=== PATIENT | female | born 1955 | race Caucasian/White ===

== ENCOUNTER 2016-07-16 16:22 | Outpatient (CLI) | payer MEDICAID | END 2016-07-16 16:23 | disposition home or self-care (01) | DX: R05 Cough (principal) ==

== ENCOUNTER 2016-12-18 15:00 | Outpatient (CLI) | payer MEDICAID ==
[2016-12-18 17:44] LABS: BASOPHILS % (AUTO) 0.5 %; EOSINOPHILS # (AUTO) 0.3 10^3/uL (0.0-0.7); EOSINOPHILS % (AUTO) 4.3 %; HCT - HEMATOCRIT 44.7 % (37.0-47.0); HGB - HEMOGLOBIN 14.8 g/dL (12.0-16.0); LYMPHOCYTES # (AUTO) 1.7 10^3/uL (1.5-3.5); LYMPHOCYTES % (AUTO) 25.2 %; MEAN CORPUSCULAR HEMOGLOBIN 30.3 pg (27.0-31.0); MEAN CORPUSCULAR HGB CONC 33.1 g/dL (32.0-36.0); MEAN CORPUSCULAR VOLUME 91.5 fL (81.0-99.0); MEAN PLATELET VOLUME 9.6 fL (7.9-10.8); MONOCYTES # (AUTO) 0.5 10^3/uL (0.0-1.0); MONOCYTES % (AUTO) 7.7 %; NEUTROPHILS # (AUTO) 4.2 10^3/uL (1.5-6.6); NEUTROPHILS % (AUTO) 62.3 %; NUCLEATED RED BLOOD CELLS AUTO 0.1 /100WBC; RED BLOOD COUNT 4.88 10^6/uL (4.20-5.40); RED CELL DISTRIBUTION WIDTH 13.8 % (12.0-15.0); UNCORRECTED WHITE BLOOD COUNT 6.7 x10^3/uL; WHITE BLOOD COUNT 6.7 x10^3/uL (4.8-10.8)
[2016-12-18 17:46] LABS: ALBUMIN/GLOBULIN RATIO 1.5 (1.0-2.2); CALCIUM 9.7 mg/dL (8.5-10.3); CREATININE 0.7 mg/dL (0.4-1.0); POTASSIUM 3.9 mmol/L (3.5-5.0); TOTAL PROTEIN 7.8 g/dL (6.7-8.2)
== END 2016-12-18 15:01 | disposition home or self-care (01) ==
LOC: LAB.F 15:00
PROVIDERS: ATTEND Nurse Practitioner Family
DX: R53.83 Other fatigue (principal)
CPT/HCPCS: 36415; 80053; 84443; 85025

== ENCOUNTER 2017-09-28 08:00 | Outpatient (CLI) | payer MEDICAID ==
[2017-09-28 18:51] LABS: HGB - HEMOGLOBIN 15.1 g/dL (12.0-16.0); MEAN CORPUSCULAR HEMOGLOBIN 30.6 pg (27.0-31.0); MEAN CORPUSCULAR HGB CONC 33.9 g/dL (32.0-36.0); MEAN CORPUSCULAR VOLUME 90.5 fL (81.0-99.0); MEAN PLATELET VOLUME 9.7 fL (7.9-10.8); RED BLOOD COUNT 4.91 10^6/uL (4.20-5.40); RED CELL DISTRIBUTION WIDTH 14.1 % (12.0-15.0); WHITE BLOOD COUNT 5.1 x10^3/uL (4.8-10.8)
[2017-09-28 19:10] LABS: CRP - C-REACTIVE PROTEIN < 1.0 mg/dL (0-1.0)
[2017-09-28 19:11] LABS: URIC ACID 7.1 mg/dL (2.6-7.2)
[2017-09-28 20:32] LABS: RHEUMATOID FACTOR NEGATIVE (Negative)
[2017-09-30 13:42] LABS: ANA SCREEN NEGATIVE (NEGATIVE)
== END 2017-09-28 08:01 | disposition home or self-care (01) ==
LOC: LAB.S 08:00
PROVIDERS: ATTEND Nurse Practitioner Family
DX: M19.90 Unspecified osteoarthritis, unspecified site (principal); M79.643 Pain in unspecified hand
CPT/HCPCS: 36415; 84550; 85651; 86038; 86140; 86200; 86430

== ENCOUNTER 2017-09-28 12:12 | Outpatient (CLI) | payer MEDICAID ==
--- NOTE | 2017-09-28 13:16 | XRAY Report ---
THREE VIEW BILATERAL HANDS: 09/28/2017 CLINICAL INDICATION: Pain. FINDINGS: AP, lateral, oblique views of the bilateral hands demonstrate osteoarthritis, worst in the left first carpometacarpal joint and right distal fifth interphalangeal joint. There is no evidence of acute fracture or dislocation. No radiopaque foreign body is seen in the soft tissues. IMPRESSION: BILATERAL OSTEOARTHRITIS. TD: 09/28/2017 13:15
== END 2017-09-28 12:13 | disposition home or self-care (01) ==
LOC: DI.S 12:12
PROVIDERS: ATTEND Nurse Practitioner Family
DX: M19.042 Primary osteoarthritis, left hand (principal); M19.041 Primary osteoarthritis, right hand
CPT/HCPCS: 36415; 84550; 85651; 86038; 86140; 86200; 86430

== ENCOUNTER 2017-10-19 08:00 | Outpatient (CLI) | payer MEDICAID ==
[2017-10-19 18:40] LABS: CALCIUM 9.9 mg/dL (8.5-10.3); URIC ACID 6.7 mg/dL (2.6-7.2)
== END 2017-10-19 08:01 | disposition home or self-care (01) ==
LOC: LAB.S 08:00
PROVIDERS: ATTEND Nurse Practitioner Family
DX: M79.675 Pain in left toe(s) (principal)
CPT/HCPCS: 36415; 82310; 84550

== ENCOUNTER 2017-10-19 09:33 | Outpatient (CLI) | payer MEDICAID ==
--- NOTE | 2017-10-19 10:47 | XRAY Report ---
THREE VIEW LEFT GREAT TOE: 10/19/2017 CLINICAL INDICATION: Pain. FINDINGS: AP, lateral, oblique views of the left great toe demonstrate mild osteoarthritis of the first metatarsophalangeal joint. There is no evidence of acute fracture or dislocation. No foreign body is seen in the soft tissues. IMPRESSION: MILD OSTEOARTHRITIS OF THE FIRST METATARSOPHALANGEAL JOINT. TD: 10/19/2017 10:46
== END 2017-10-19 09:34 | disposition home or self-care (01) ==
LOC: DI.S 09:33
PROVIDERS: ATTEND Nurse Practitioner Family
DX: M79.675 Pain in left toe(s) (principal); M19.072 Primary osteoarthritis, left ankle and foot
CPT/HCPCS: 36415; 73660; 82310; 84550

== ENCOUNTER 2018-05-10 10:48 | Outpatient (CLI) | payer MEDICAID ==
[2018-05-10 14:03] LABS: MUDS CUTOFF CONCENTRATIONS CUTOFF CONC BELOW:
[2018-05-10 18:23] LABS: AMPHETAMINE SCREEN,URINE POSITIVE (NEGATIVE); BENZODIAZEPINES SCREEN, URINE NEGATIVE (NEGATIVE); COCAINE SCREEN URINE NEGATIVE (NEGATIVE); METHADONE SCREEN, URINE NEGATIVE (NEGATIVE); METHAMPHETAMINES SCREEN, URINE NEGATIVE (NEGATIVE); OPIATE SCREEN, URINE NEGATIVE (NEGATIVE); OXYCODONE SCREEN, URINE NEGATIVE (NEGATIVE); PROPOXYPHENE SCREEN, URINE NEGATIVE (NEGATIVE); TRICYCLIC ANTIDEPRESSANT,URINE NEGATIVE (NEGATIVE)
== END 2018-05-10 23:59 | disposition home or self-care (01) ==
LOC: LAB.R 10:48
PROVIDERS: ATTEND Nurse Practitioner Family
DX: F90.0 Attention-deficit hyperactivity disorder, predominantly inattentive type (principal)
CPT/HCPCS: 80306

== ENCOUNTER 2018-11-03 08:00 | Outpatient (CLI) | payer MEDICAID ==
[2018-11-03 17:46] LABS: MUDS CUTOFF CONCENTRATIONS CUTOFF CONC BELOW:
[2018-11-03 18:03] LABS: AMPHETAMINE SCREEN,URINE POSITIVE (NEGATIVE); BENZODIAZEPINES SCREEN, URINE NEGATIVE (NEGATIVE); COCAINE SCREEN URINE NEGATIVE (NEGATIVE); METHADONE SCREEN, URINE NEGATIVE (NEGATIVE); METHAMPHETAMINES SCREEN, URINE NEGATIVE (NEGATIVE); OPIATE SCREEN, URINE NEGATIVE (NEGATIVE); OXYCODONE SCREEN, URINE NEGATIVE (NEGATIVE); PROPOXYPHENE SCREEN, URINE NEGATIVE (NEGATIVE); TRICYCLIC ANTIDEPRESSANT,URINE NEGATIVE (NEGATIVE)
== END 2018-11-03 23:59 | disposition home or self-care (01) ==
LOC: LAB.R 08:00
PROVIDERS: ATTEND Nurse Practitioner Family
DX: F90.9 Attention-deficit hyperactivity disorder, unspecified type (principal)
CPT/HCPCS: 80306

== ENCOUNTER 2019-07-23 10:28 | Outpatient (CLI) | payer MEDICAID ==
--- NOTE | 2019-07-23 13:20 | XRAY Report ---
Reason: Right 4th toe pain Procedure Date: 07/23/2019 Accession Number: [id number] / [id number] Procedure: XR - Toe(s) RT CPT Code: Final Report FULL RESULT: EXAM: RIGHT TOE RADIOGRAPHY EXAM DATE: 07/23/2019 10:45 AM. CLINICAL HISTORY: Right 4th toe pain. COMPARISON: None. TECHNIQUE: 3 views. FINDINGS: Bones: Normal. No fracture or bone lesion. Joints: Normal. No subluxations. Soft Tissues: Normal. No soft tissue swelling. IMPRESSION: Normal toe radiography. RADIA
== END 2019-07-23 10:29 | disposition home or self-care (01) ==
LOC: DI 10:28
PROVIDERS: ATTEND Physician Assistant Medical
DX: M25.571 Pain in right ankle and joints of right foot (principal)
CPT/HCPCS: 73660

== ENCOUNTER 2020-11-01 08:00 | Outpatient (CLI) | payer MEDICAID ==
[2020-11-01 14:33] LABS: HCT - HEMATOCRIT 48.6 % (37.0-47.0); HGB - HEMOGLOBIN 15.9 g/dL (12.0-16.0); MEAN CORPUSCULAR HEMOGLOBIN 30.5 pg (27.0-31.0); MEAN CORPUSCULAR HGB CONC 32.7 g/dL (32.0-36.0); MEAN CORPUSCULAR VOLUME 93.3 fL (81.0-99.0); MEAN PLATELET VOLUME 11.3 fL (7.9-10.8); RED BLOOD COUNT 5.21 10^6/uL (4.20-5.40); RED CELL DISTRIBUTION WIDTH 13.6 % (12.0-15.0); WHITE BLOOD COUNT 6.7 x10^3/uL (4.8-10.8)
[2020-11-01 15:59] LABS: THYROID STIMULATING HORMONE 2.17 uIU/mL (0.34-5.60)
[2020-11-01 16:16] LABS: RHEUMATOID FACTOR NEGATIVE (Negative)
[2020-11-05 09:12] LABS: ANA SCREEN NEGATIVE (NEGATIVE)
== END 2020-11-01 08:01 | disposition home or self-care (01) ==
LOC: LAB.S 08:00
PROVIDERS: ATTEND Physician Assistant Medical
DX: H20.9 Unspecified iridocyclitis (principal); M19.90 Unspecified osteoarthritis, unspecified site; R30.0 Dysuria; R31.9 Hematuria, unspecified; R53.83 Other fatigue; R53.81 Other malaise
CPT/HCPCS: 36415; 84443; 85027; 85651; 86038; 86140; 86200; 86430; 87086

== ENCOUNTER 2020-11-01 11:12 | Outpatient (CLI) | payer MEDICAID ==
--- NOTE | 2020-11-01 11:37 | XRAY Report ---
PROCEDURE: Chest 3 View X-Ray INDICATIONS: FATIGUE AND MALAISE, COUGH, BILATERAL IRITIS TECHNIQUE: 2 view(s) of the chest. COMPARISON: Chest x-ray 2 views, 07/16/2016. FINDINGS: Surgical changes and devices: None. Lungs and pleura: No pleural effusions or pneumothorax. Lungs are clear. Mediastinum: Mediastinal contours are normal. Heart size is normal. Bones and chest wall: No suspicious bony abnormalities. Soft tissues appear unremarkable. IMPRESSION: No acute cardiopulmonary disease. Reviewed by: Litzy Reich MD on 11/01/2020 11:36 AM PDT Approved by: Litzy Reich MD on 11/01/2020 11:36 AM PDT Station ID: [id number]
== END 2020-11-01 23:59 | disposition home or self-care (01) ==
LOC: DI.S 11:12
PROVIDERS: ATTEND Physician Assistant Medical
DX: R53.83 Other fatigue (principal); R05 Cough; H20.9 Unspecified iridocyclitis; M19.90 Unspecified osteoarthritis, unspecified site; R30.0 Dysuria; R31.9 Hematuria, unspecified; R53.81 Other malaise
CPT/HCPCS: 36415; 84443; 85027; 85651; 86038; 86140; 86200; 86430; 87086

== ENCOUNTER 2021-05-03 08:00 | Outpatient (CLI) | payer MEDICAID ==
--- NOTE | 2021-05-03 09:59 | XRAY Report ---
PROCEDURE: Ribs w/PA Chest LT INDICATIONS: CONTUSION OF LEFT FRONT WALL OF THORAX TECHNIQUE: 4 views of the right ribs were acquired, along with a single view chest. COMPARISON: Chest xray 11/01/20 FINDINGS: Surgical changes and devices: None. Bones and chest wall: No fractures or dislocations. No suspicious bony lesions. Overlying soft tis sues appear unremarkable. Lungs and pleura: No pleural effusions or pneumothorax. Lungs appear clear. Mediastinum: Mediastinal contours appear normal. Heart size is normal. IMPRESSION: No visualized acute fracture or dislocation. However, occult injury cannot be excluded. Recommend loli rt interval imaging follow-up in 7-10 days as clinically indicated for additional evaluation. Reviewed by: Sada Lorenzo MD on 05/03/2021 9:58 AM [facility] Approved by: Sada Lorenzo MD on 05/03/2021 9:58 AM [facility] Station ID: [id number]
== END 2021-05-03 23:59 | disposition home or self-care (01) ==
LOC: DI.S 08:00
PROVIDERS: ATTEND Physician Assistant Medical
DX: S20.212A Contusion of left front wall of thorax, initial encounter (principal)

== ENCOUNTER 2021-05-03 08:00 | Outpatient (CLI) | payer MEDICAID ==
--- NOTE | 2021-05-03 10:45 | XRAY Report ---
PROCEDURE: Lumbar Spine 2 View INDICATIONS: LOW BACK PAIN TECHNIQUE: 3 views of the lumbar spine were acquired. COMPARISON: None. FINDINGS: Bones: 5 [id number]-[id number] vertebrae are present. There is normal bony alignment. Decreased disc heig ht, degenerative endplate changes and bilateral facet arthrosis throughout lumbar spine is seen more prominent at L4-5 and L5-S1 levels. No vertebral body compression fractures. No suspicious bony lesi ons. Soft tissues: Overlying bowel gas pattern is normal. No suspicious soft tissue calcifications. IMPRESSION: No lumbar spine compression fracture or spondylolisthesis. Degenerative disc disease thr oughout lumbar spine more prominent in lower lumbar spine as above. Reviewed by: Levar Flores MD on 05/03/2021 10:44 AM PST Approved by: Levar Flores MD on 05/03/2021 10:44 AM PST Station ID: [id number]
== END 2021-05-03 23:59 | disposition home or self-care (01) ==
LOC: DI.S 08:00
PROVIDERS: ATTEND Registered Nurse
DX: M51.16 Intervertebral disc disorders with radiculopathy, lumbar region (principal); M47.26 Other spondylosis with radiculopathy, lumbar region; S20.212A Contusion of left front wall of thorax, initial encounter

== ENCOUNTER 2022-02-21 08:00 | Outpatient (CLI) | payer MEDICARE, MEDICAID ==
--- NOTE | 2022-02-21 15:55 | XRAY Report ---
PROCEDURE: Knee 4 View LT INDICATIONS: LEFT KNEE EFFUSION TECHNIQUE: 4 views of the left knee(s) were acquired. COMPARISON: None. FINDINGS: Bones: No fractures or dislocations. No suspicious bony lesions. There is moderate medial as well as patellofemoral compartment narrowing. Minimal posterior osteophytes are present. No erosions. Soft tissues: Minimal joint effusion. No suspicious soft tissue calcifications. IMPRESSION: Arthritic changes within the medial patellofemoral compartments. Reviewed by: Sada Lorenzo MD on 02/21/2022 3:54 PM PDT Approved by: Sada Lorenzo MD on 02/21/2022 3:54 PM PDT Station ID: [id number]
== END 2022-02-21 08:01 | disposition home or self-care (01) ==
LOC: DI.S 08:00
PROVIDERS: ATTEND Physician Assistant
DX: M25.462 Effusion, left knee (principal); M17.12 Unilateral primary osteoarthritis, left knee

== ENCOUNTER 2023-09-09 10:20 | Outpatient (CLI) | payer MEDICAID, MEDICARE ==
--- NOTE | 2023-09-09 11:28 | XRAY Report ---
PROCEDURE: Chest 2V INDICATIONS: ACUTE COUGH TECHNIQUE: 2 views of the chest were acquired. COMPARISON: Chest x-ray 05/03/2021 FINDINGS: Surgical changes and devices: None. Lungs and pleura: No pleural effusions or pneumothorax. Lungs are clear. Mediastinum: Mediastinal contours appear normal. Heart size is mildly prominent. Bones and chest wall: No suspicious bony lesions. Overlying soft tissues appear unremarkable. IMPRESSION: No acute cardiopulmonary process. Reviewed by: Sada Lorenzo MD on 09/09/2023 11:27 AM PDT Approved by: Sada Lorenzo MD on 09/09/2023 11:27 AM PDT Station ID: [id number]
[2023-09-09 14:41] LABS: BASOPHILS % (AUTO) 0.6 %; EOSINOPHILS # (AUTO) 0.1 10^3/uL (0.0-0.7); EOSINOPHILS % (AUTO) 1.9 %; HCT - HEMATOCRIT 50.1 % (37.0-47.0); HGB - HEMOGLOBIN 15.9 g/dL (12.0-16.0); LYMPHOCYTES # (AUTO) 1.7 10^3/uL (1.5-3.5); LYMPHOCYTES % (AUTO) 24.2 %; MEAN CORPUSCULAR HGB CONC 31.7 g/dL (32.0-36.0); MEAN CORPUSCULAR VOLUME 94.5 fL (81.0-99.0); MEAN PLATELET VOLUME 10.8 fL (7.9-10.8); MONOCYTES # (AUTO) 0.7 10^3/uL (0.0-1.0); MONOCYTES % (AUTO) 9.7 %; NEUTROPHILS # (AUTO) 4.5 10^3/uL (1.5-6.6); NEUTROPHILS % (AUTO) 63.2 %; PLT - PLATELET COUNT 260 10^3/uL (130-450); RED CELL DISTRIBUTION WIDTH 13.7 % (12.0-15.0); WHITE BLOOD COUNT 7.2 x10^3/uL (4.8-10.8)
[2023-09-09 15:11] LABS: THYROID STIMULATING HORMONE 3.05 uIU/mL (0.34-5.60)
[2023-09-09 15:12] LABS: ALBUMIN 4.5 g/dL (3.2-5.5); ALBUMIN/GLOBULIN RATIO 1.5 (1.0-2.2); BILIRUBIN,TOTAL 1.2 mg/dL (0.2-1.0); CALCIUM 10.3 mg/dL (8.5-10.3); CREATININE 0.8 mg/dL (0.6-1.3); POTASSIUM 4.2 mmol/L (3.5-4.5); TOTAL PROTEIN 7.6 g/dL (6.4-8.9)
[2023-09-09 20:58] LABS: ESTIMATED AVERAGE GLUCOSE 131 mg/dL (70-100); HEMOGLOBIN A1c% 6.2 % (4.27-6.07)
== END 2023-09-09 10:21 | disposition home or self-care (01) ==
LOC: DI.S 10:20
PROVIDERS: ATTEND Registered Nurse
DX: R05.1 Acute cough (principal); G47.19 Other hypersomnia; G47.9 Sleep disorder, unspecified; R61 Generalized hyperhidrosis; R63.5 Abnormal weight gain; R03.0 Elevated blood-pressure reading, without diagnosis of hypertension; R73.9 Hyperglycemia, unspecified
CPT/HCPCS: 36415; 80053; 81599; 83036; 84443; 85025

== ENCOUNTER 2024-01-13 10:33 | Outpatient (CLI) | payer MEDICARE ==
--- NOTE | 2024-01-13 11:35 | Sleep Patient Instructions ---
Sleep Center Visit Summary - Patient Visit Information Reason for Visit: Initial consult for evaluation of sleep disordered breathing and other sleep issues. - Patient Instructions Instructions Attached: Sleep Study, Sleep Study Home Monitor Additional Instructions: You will be completing a sleep study, either an in-lab polysomnography (PSG) or home sleep study (HST). You will follow-up in the sleep care office after the sleep study is completed to hear the results and talk about therapy, if needed. You will be called by our office staff to schedule this appointment, but you may contact us with any questions. - Clinic Information Contact: [facility] [address] [place] [id number] [email or web address] T: [phone]
--- NOTE | 2024-01-13 11:42 | SLEEP CARE CONSULTATION ---
Information from patient questionnaire entered by Donna Argueta. I have reviewed and concur with the information entered by Donna Argueta. This document represents the service I personally performed and the decisions made by me, Lor Pascual ARNP. History of Present Illness Service Date and Time: 01/13/2024 1033 Reason for Visit: New patient Chief Complaint: reports: Insomnia, Unrefreshed sleep, Snoring, Excessive daytime sleepiness, Fatigue, Frequent awakenings at night, Other (EXCESSIVE SWEATING, NIGHTMARES, QUICK WEIGHT GAIN) Date of Onset: 12MONTHS Usual bedtime: VARIES Time it takes to fall asleep: IT DEPENDS BUT RARELY IMMEDIATELY Snores at night: Yes Observed to quit breathing while asleep: Yes (according to friends and family) Sleeps alone due to snoring: Yes Number of times waking at night: A LOT Reasons for waking at night: reports: Snoring, Gasping for air (waking up startled), Bathroom, Other (NOISE) Toss, Turn, or Twitch while sleeping: Yes (all night long) Recalls having dreams: Yes Usually gets out of bed at: VARIES; 0800, may go back to bed if did not sleep well Feels refreshed in the morning: No Morning headache: No Sleepy or fatigued during the day: Yes Ever fallen asleep while driving: Yes (drowsy driving; no accidents or going out of rea) Takes day naps: Yes (daily, 1-2 hours) Prior sleep studies: Yes Year and Where: 25+ years ago, [place] Additional HPI information: I had the pleasure of seeing RACHEL SINGH today regarding the possibility of her having a sleep disorder. Her current complaints are insomnia, unrefreshed sleep, snoring, excessive daytime sleepiness, fatigue and frequent night awakenings. She says about a year ago she moved away and then back. She has put on 25+ pounds. She has been having nightmares and night sweats. She says she has some stress in her life. She says she was diagnosed with sleep apnea 25 to 30 years ago when she was more significantly overweight. She tried and could not tolerate the CPAP. She lost 50 lbs and stopped having symptoms. She says her blood work came back with normal values. She says her body aches all over. She comes in to see if she has sleep apnea. - Parasomnia Symptoms Ever been unable to move upon waking from sleep: No Walks in sleep: No Talks in sleep: Yes (last couple years) Ever acted out dreams in sleep: Yes (found arm/hand moving in sleep) Ever felt weak in the knees when startled or emotional: No Bothered by creepy, crawly, restless sensations in legs: No Problems with memory or concentration: Yes (both) Subjective Initial [place] Sleepiness Scale score: 15 (01/13/24) Past Medical History Past Medical History: reports: Claustrophobia, Arthritis, Anxiety, Attention deficit Social History The patient's occupation is a RETIRED. Patient is and lives in . Have you smoked in the past 12 months: No Alcohol use: No Caffeine use: Yes Caffeine amount and frequency: BLACK TEA 1-2 TIMES A DAY Family History Family history of sleep disordered breathing: Yes Family Hx Sleep Apnea: Father: Snoring, Sleep apnea - Untreated, Sibling: Snoring, Sleep apnea - Untreated Allergies and Home Medications Known drug allergies: No Drug allergies reviewed: Yes Home medication list reviewed: Yes (as listed) Allergy and home medication list: Allergies No Known Drug Allergies Allergy (Verified 01/13/24 11:09) Home Medications Calcium Carbonate [Calcium] See Rx Instructions .ROUTE .COMPLEX 01/13/24 [History] Dextroamphetamine/Amphetamine [Adderall 30 mg Tablet] See Rx Instructions .ROUTE .COMPLEX 01/13/24 [History] Lactobacillus Combination No.4 [Probiotic] See Rx Instructions .ROUTE .COMPLEX 01/13/24 [History] Lysine [l-Lysine] See Rx Instructions .ROUTE .COMPLEX 01/13/24 [History] Review of Systems Weight gain over past 5 years: 20-30 Cardiovascular: reports: high blood pressure Gastrointestinal: reports: difficulty swallowing. denies: heartburn Urinary: reports: incontinence Neurological: denies: headaches Psychiatric: reports: Attention Deficit Hyperactivity, anxiety, depression, claustrophobia Ear/Nose/Throat: reports: hoarseness, wisdom teeth removed. denies: tonsillectomy Endocrine: reports: sluggishness, unexplained weakness Musculoskeletal: reports: joint pain, neck pain, joint swelling Physical Exam Vital signs obtained and entered by: DONNA Austin MA Blood Pressure: 170/110 (RIGHT ARM) Cuff size: long Heart Rate: 82 O2 Saturation: 97 Height: 5 ft 6 in Weight: 228 lb Body Mass Index: 36.8 BMI Classification: Obese Neck circumference: 17.5 Nostrils: patent to airflow Mouth and throat: narrow oropharynx Soft palate: long Hard palate: normal Uvula: normal Uvula visualization: 0% Mallampati Class IV Tongue: enlarged in size with teeth nicholas on lateral edges Tonsils: 1+ Neck: normal w/o lymphadenopathy or thyromegaly Heart: regular rate and rhythm Lungs: clear bilaterally Impression and Plan 1. Suspected Obstructive Sleep Apnea-Hypopnea Syndrome, as previously diagnosed in the past and as suggested by a history of loud and irregular snoring, observed cessation of breath while asleep, gasping or choking in sleep, frequent awakening during the night, unrefreshed sleep, cognitive impairment, and excessive daytime sleepiness. Narrow oropharynx and obesity are common predisposing factors for obstructive sleep apnea-hypopnea syndrome. I recommend proceeding to polysomnography to confirm the diagnosis and to assess severity. If the patient has significant sleep disordered breathing, a manual CPAP titration study will also be performed to find the optimal treatment pressure. I informed the patient of what the sleep studies involve and after some discussion, obtained agreement to proceed. The pathophysiology of obstructive sleep apnea-hypopnea syndrome was discussed with the patient and health risks of cardiovascular and cerebrovascular disease if not treated. Risks of drowsy driving discussed in detail and patient advised to avoid long distance driving and to gut puller at the first sign of drowsiness. Patient agreed to plan. * Schedule polysomnography * Avoid long distance driving or driving when feeling sleepy. * Avoid alcohol, sedative and muscle relaxant around bedtime. * Attempt to lose weight. * Review instructions provided by trained office staff on how to prepare for the sleep study. * Return for follow-up after sleep study completed. Counseling Topics: Weight loss health impact Plan: PSG and follow up Visit Type: In Office Time Spent with Patient (minutes): 36 Provider Statement: I spent 100% of the Face to Face Visit with the patient with greater than 50% spent counseling the patient and coordination of care.
[2024-01-13 12:06] VITALS: BP 170/110; O2SAT 97
== END 2024-01-13 10:34 | disposition home or self-care (01) ==
LOC: SC 10:33
PROVIDERS: ATTEND Nurse Practitioner Family
DX: G47.10 Hypersomnia, unspecified (principal); G47.00 Insomnia, unspecified; G47.8 Other sleep disorders; R06.83 Snoring; R53.83 Other fatigue; R61 Generalized hyperhidrosis; R41.89 Other symptoms and signs involving cognitive functions and awareness; E66.9 Obesity, unspecified; Z68.36 Body mass index [BMI] 36.0-36.9, adult
CPT/HCPCS: 99203; G0463; 99212